=== PATIENT | male | born 1985 | race African-American/Black ===

== ENCOUNTER 2016-10-02 00:08 | Emergency (ER) | payer MEDICAID ==
[~2016-10-02] VITALS: Ht 185.4 cm; Wt 93.0 kg
[2016-10-02 01:08] VITALS: BP 112/61
[2016-10-02 01:34] LABS: CLARITY URINE CLEAR (CLEAR); COLOR URINE YELLOW (YELLOW); GLUCOSE URINE NEGATIVE (NEGATIVE); KETONES URINE NEGATIVE (NEGATIVE); LEUKOCYTE ESTERASE URINE NEGATIVE (NEGATIVE); NITRITE URINE NEGATIVE (NEGATIVE); OCCULT BLOOD URINE NEGATIVE (NEGATIVE); PROTEIN URINE NEGATIVE (NEGATIVE); SPECIFIC GRAVITY URINE 1.016 (1.005-1.030); UROBILINOGEN URINE 0.2 E.U./dL (0.2-1.0)
== END 2016-10-02 02:38 | disposition home or self-care (01) ==
LOC: ER 00:09
DX: R35.0 Frequency of micturition (principal); K50.90 Crohn's disease, unspecified, without complications; F17.210 Nicotine dependence, cigarettes, uncomplicated
CPT/HCPCS: 81003; 99283; Z7610

== ENCOUNTER 2017-09-03 17:04 | Emergency (ER) | payer MEDICAID ==
[~2017-09-03] VITALS: Ht 185.4 cm; Wt 100.0 kg
[2017-09-03 17:21] VITALS: BP 127/82
== END 2017-09-03 22:21 | disposition left against medical advice (07) ==
LOC: ER 17:38
DX: R51 Headache (principal); R07.9 Chest pain, unspecified; Z53.21 Procedure and treatment not carried out due to patient leaving prior to being seen by health care provider
CPT/HCPCS: 93005